=== PATIENT | female | born 1990 | race Caucasian/White ===

== ENCOUNTER 2019-10-28 10:02 | Emergency (ER) | payer MEDICAID, OTHER ==
[~2019-10-28] VITALS: Ht 177.8 cm; Wt 65.8 kg
--- NOTE | 2019-10-28 10:18 | NUR ---
Dr. Arango at bedside for MSE
--- NOTE | 2019-10-28 10:37 | NUR ---
Dr. Long at bedside for MSE
[2019-10-28 10:39] LABS: *BILIRUBIN,URIN NEGATIVE (NEGATIVE); *BLOOD, URINE NEGATIVE (NEGATIVE); *CLARITY,URINE CLOUDY (CLEAR); *COLOR,URINE YELLOW (YELLOW); *KETONES,URINE TRACE (NEGATIVE); *UROBILINOGEN,URINE 0.2 E.U./dl (NORMAL); LEUKOCYTE ESTERASE ,URINE 2+ (NEGATIVE); NITRITE, URINE NEGATIVE (NEGATIVE); UGLUCOSE NEGATIVE (NEGATIVE)
--- NOTE | 2019-10-28 10:45 | NUR ---
called [facility] [employer] and left message to call back
[2019-10-28 10:46] LABS: RBC,URINE 0-3 /HPF (0-3)
[2019-10-28 10:47] LABS: *URINE HCG, QUAL NEGATIVE (NEGATIVE); BACTERIA,URINE MANY /HPF (NONE SEEN); SQUAMOUS EPITHELIAL CELL,UR MANY /HPF (NONE SEEN); WBC,URINE 20-50 /HPF (0-3)
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
--- NOTE | 2019-10-28 11:10 | NUR ---
Spoke with Nat Bajwa from [facility] and relayed information regarding patient. [facility] information [phone]. [id number] [place]. located at [facility]
--- NOTE | 2019-10-28 11:24 | NUR ---
Patient discharged to home in stable condition. Written and verbal after care instructions given. Patient verbalizes understanding of instructions. Stressed follow up or return to ER for worsening s/s. Patient ambulating with steady gait. Patient states she will be going to [facility] in [place]. Provided address and phone number to patient. NAD noted
[2019-10-28 11:28] VITALS: BP 128/83
== END 2019-10-28 11:24 | disposition home or self-care (01) ==
LOC: ER 10:02
DX: T76.21XA Adult sexual abuse, suspected, initial encounter (principal); N39.0 Urinary tract infection, site not specified
CPT/HCPCS: 84703; 87086; A4663